=== PATIENT | female | born 1950 | race African-American/Black ===

== ENCOUNTER 2017-09-20 15:22 | Outpatient (CLI) | payer BC | END 2017-09-20 15:23 | disposition home or self-care (01) | LOC: BICMAMMO 15:22 | PROVIDERS: ATTEND Internal Medicine | DX: Z12.31 Encounter for screening mammogram for malignant neoplasm of breast (principal) | CPT/HCPCS: 77063; 77067 ==

== ENCOUNTER 2019-07-04 14:17 | Outpatient (CLI) | payer MEDICARE, BC ==
--- NOTE | 2019-07-04 16:03 | BD ---
Exam: DEXA Bone Density 07/04/19 HISTORY: Menopausal. FINDINGS: BMD (g/cm2) T-SCORE Left hip: Femoral neck: 0.840 -0.1 Total: 0.907 -0.3 Within normal limits with no increased risk for fracture. Right hip: Femoral neck: 0.826 -0.2 Total: 0.933 -0.1 Within normal limits with no increased risk for fracture. FRAX score not reported because all T-Scores at or above -1.0. POS: [facility]
--- NOTE | 2019-07-07 08:15 | MMO ---
Bilateral MAMMO Bilat Screen [facility]. CLINICAL HISTORY: Patient is 68 years old and is seen for screening. The patient has no family history of breast cancer. The patient has no personal history of cancer. The patient has a history of left Excisional Biopsy at age 28 - benign. VIEWS: The views performed were: bilateral craniocaudal with tomosynthesis and bilateral mediolateral oblique with tomosynthesis. FILMS COMPARED: The present examination has been compared to prior imaging studies performed at [facility] on 04/23/2015, 04/28/2016 and 09/20/2017, and at [facility] on 05/02/2013. This study has been interpreted with the assistance of computer-aided detection. MAMMOGRAM FINDINGS: There are scattered fibroglandular densities. Benign calcifications are noted bilaterally. There are no suspicious masses, suspicious calcifications, or new areas of architectural distortion. IMPRESSION: THERE IS NO MAMMOGRAPHIC EVIDENCE OF MALIGNANCY. A ROUTINE FOLLOW-UP MAMMOGRAM IN 1 YEAR IS RECOMMENDED. THE RESULTS OF THIS EXAM WERE SENT TO THE PATIENT. ACR BI-RADS Category 2 - Benign finding MAMMOGRAPHY NOTE: 1. A negative mammogram report should not delay a biopsy if a dominant of clinically suspicious mass is present. 2. Approximately 10% to 15% of breast cancers are not detected by mammography. 3. Adenosis and dense breasts may obscure an underlying neoplasm. Reported by: ELISABETH LOCKETT MD Electonically Signed: [id number]
== END 2019-07-04 14:18 | disposition home or self-care (01) ==
LOC: BICMAMMO 14:17
PROVIDERS: ATTEND Internal Medicine
DX: Z12.31 Encounter for screening mammogram for malignant neoplasm of breast (principal); Z13.820 Encounter for screening for osteoporosis; N95.9 Unspecified menopausal and perimenopausal disorder; Z91.89 Other specified personal risk factors, not elsewhere classified
CPT/HCPCS: 77063; 77067; 77080

== ENCOUNTER 2019-09-16 13:35 | Outpatient (CLI) | payer MEDICARE, BC ==
--- NOTE | 2019-09-16 13:52 | ULT ---
Abdominal aortic sonogram with duplex evaluation HISTORY: Aneurysm screening. FINDINGS: Proximal abdominal aorta is 1.5 cm AP diameter, mid abdominal aorta 1.4 cm, distal abdomina l aorta 1.3 cm. Common iliac arteries have a normal appearance. No adjacent fluid. Good color and spectral Doppler flow. IMPRESSION : Normal exam. No evidence of abdominal aortic aneurysm.
== END 2019-09-16 13:36 | disposition home or self-care (01) ==
LOC: BICULT 13:35
PROVIDERS: ATTEND Internal Medicine
DX: Z13.6 Encounter for screening for cardiovascular disorders (principal)
CPT/HCPCS: 76706

== ENCOUNTER 2020-08-24 16:38 | Outpatient (CLI) | payer MEDICARE, BC ==
[2020-08-24 18:00] LABS: Anion Gap 14 mmol/L (10-20); BUN (Urea Nitrogen) 17 mg/dL (9.8-20.1); Calc. Creatinine Clearance 0 mL/min (70-130); Calcium 10.2 mg/dL (7.8-10.44); Carbon Dioxide 25 mmol/L (23-31); Chloride 105 mmol/L (98-107); Glucose 83 mg/dL (80-115); Sodium 140 mmol/L (136-145)
[2020-08-24 18:24] LABS: Bilirubin Neg (Negative); Blood, Urine Negative (Negative); Clarity Clear (Clear); Glucose, Urine (Dipstick) Normal (Negative); Ketone, Urine Negative (Negative); Leukocyte Negative (Negative); Nitrite Negative (Negative); Protein, Urine (Dipstick) Negative (Neg-Trace); Urobilinogen Normal mg/dL (Less than 2)
[2020-08-24 18:42] LABS: INR-International Normal Ratio 0.9; PTT 26.9 sec (22.0-33.0); Prothrombin Time 10.5 sec (9.5-12.1)
[2020-08-24 18:43] LABS: Bacteria/HPF 2+ HPF (None Seen); Mucous/LPF Rare LPF (<2+); RBC/HPF None Seen HPF (0-3); WBC/HPF 0-3 HPF (0-3)
[2020-08-24 18:57] LABS: Mean Corpuscular HGB CONC 31.4 g/dL (32.0-36.0); Mean Corpuscular Hemoglobin 28.2 pg (27.0-33.0); Mean Corpuscular Volume 89.7 fl (81.6-98.3); Mean Platelet Volume 9.7 fl (7.4-10.4); Platelet Count 387 10x3/uL (150-450); RBC Distribution Width 13.3 % (11.5-14.5); Red Blood Cell (RBC) Count 4.26 10x6/uL (3.90-5.03); White Blood Cell (WBC) Count 5.5 10x3/uL (3.5-10.5)
== END 2020-08-24 16:39 | disposition home or self-care (01) ==
LOC: LABBT 16:38
PROVIDERS: ATTEND Urology
DX: Z01.818 Encounter for other preprocedural examination (principal); N28.89 Other specified disorders of kidney and ureter; N13.30 Unspecified hydronephrosis
CPT/HCPCS: 80048; 81001; 85027; 85610; 85730; 87086; 93005; 93010

== ENCOUNTER 2020-08-26 12:07 | Day surgery (SDC) | payer MEDICARE, BC ==
[2020-08-25 15:49] VITALS: BMI 41.8
[2020-08-26] MEDS ORDERED: Levofloxacin 500 mg/D5W 100 ml Premix Bag ONE (14:56)
[2020-08-26] MEDS ORDERED: Scopolamine 1.5 mg/72 hour Patch ONE (15:41)
[2020-08-26] MEDS ORDERED: B & O ONE (15:59)
[2020-08-26] MEDS ORDERED: Iothalamate Meglumine 60% 50 ML VIAL FS ONE (15:59)
[2020-08-26] MEDS ORDERED: Fentanyl 100 MCG/2 ML VIAL ONE ×2 (16:10→17:27)
[2020-08-26] MEDS ORDERED: PROPOFOL 200 MG/20 ML VIAL ONE (16:23)
[2020-08-26] MEDS ORDERED: Lidocaine 1% PF 5 ML VIAL ONE (16:23)
[2020-08-26] MEDS ORDERED: Ondansetron PF 4 MG/2 ML Vial ONE (16:23)
[2020-08-26] MEDS ORDERED: Dexamethasone 20 MG/5 ML VIAL ONE (16:23)
[2020-08-26] MEDS ORDERED: HYDROcodone/Acetaminophen 5/325 mg Tablet ONE (19:30)
== END 2020-08-26 19:50 | disposition home or self-care (01) ==
LOC: SDC 12:07
PROVIDERS: ATTEND Urology
PROC: 0T778DZ Dilation of Left Ureter with Intraluminal Device, Via Natural or Artificial Opening Endoscopic (ICD-10-PCS; principal; 2020-08-26)
DX: N13.1 Hydronephrosis with ureteral stricture, not elsewhere classified (principal); N81.10 Cystocele, unspecified; I10 Essential (primary) hypertension; E78.5 Hyperlipidemia, unspecified; K21.9 Gastro-esophageal reflux disease without esophagitis; E03.9 Hypothyroidism, unspecified; J45.909 Unspecified asthma, uncomplicated; E78.00 Pure hypercholesterolemia, unspecified; M19.90 Unspecified osteoarthritis, unspecified site; E11.9 Type 2 diabetes mellitus without complications; E66.01 Morbid (severe) obesity due to excess calories; Z79.899 Other long term (current) drug therapy
CPT/HCPCS: 52332; 74420; Q9961; C2617; J1100; J1956; J2405; J2704; J3010

== ENCOUNTER 2020-11-08 14:51 | Outpatient (CLI) | payer MEDICARE, BC ==
[~2020-11-08 14:51] MED LIST: Iopamidol 370 76% 100 ML VIAL ONE
== END 2020-11-08 14:52 | disposition home or self-care (01) ==
LOC: BICCT 14:51
PROVIDERS: ATTEND Urology
DX: N13.5 Crossing vessel and stricture of ureter without hydronephrosis (principal); N28.1 Cyst of kidney, acquired; K44.9 Diaphragmatic hernia without obstruction or gangrene; K57.30 Diverticulosis of large intestine without perforation or abscess without bleeding; N28.89 Other specified disorders of kidney and ureter
CPT/HCPCS: 74178; 82565; Q9967

== ENCOUNTER 2020-12-15 12:03 | Outpatient (CLI) | payer MEDICARE, BC ==
[~2020-12-15 12:03] MED LIST changes: +Furosemide 40 MG/4 ML VIAL ONE; -Iopamidol 370 76% 100 ML VIAL ONE
== END 2020-12-15 12:04 | disposition home or self-care (01) ==
LOC: NM 12:03
PROVIDERS: ATTEND Urology
DX: N13.5 Crossing vessel and stricture of ureter without hydronephrosis (principal); N13.9 Obstructive and reflux uropathy, unspecified
CPT/HCPCS: 78708; A4641; A9562; J1940

== ENCOUNTER 2021-11-07 13:51 | Outpatient (CLI) | payer MEDICARE, BC | END 2021-11-07 13:52 | disposition home or self-care (01) | LOC: BICMAMMO 13:51 | PROVIDERS: ATTEND Internal Medicine | DX: Z12.31 Encounter for screening mammogram for malignant neoplasm of breast (principal) | CPT/HCPCS: 77063; 77067 ==

== ENCOUNTER 2023-09-23 23:13 | Inpatient (IN) | payer MEDICARE ==
[2023-09-24 01:03] VITALS: BMI 40.8
[2023-09-24] MEDS ORDERED: Ondansetron ODT 4 MG TAB PO PRN (01:21)
[2023-09-24] MEDS ORDERED: Acetaminophen 650 MG Suppository PR PRN (01:21)
[2023-09-24] MEDS: Ondansetron PF 4 MG/2 ML Vial IVP PRN (01:56)
[2023-09-24] MEDS: Famotidine/PF 20 mg/2ml Vial SLOW IVP SCH ×2 (01:56→08:24)
[2023-09-24] MEDS: Morphine 2 MG/ML VIAL SLOW IVP SCH ×2 (03:53→16:50)
[2023-09-24] MEDS: Promethazine HCl 12.5 MG in Sodium Chloride 0.9% 50 ML IVPB SCH (03:53)
[2023-09-24] MEDS: Levothyroxine Sodium 50 MCG TAB PO SCH (05:16)
[2023-09-24 06:47] LABS: #Basophils Less than 0.03 10x3/uL (0.0-0.2); #Eosinphils Less than 0.03 10x3/uL (0.0-0.7); %Basophils 0.2 % (0.0-1.0); %Eosinophils 0.1 % (0.0-10.0); %Lymphocytes 10.4 % (21.0-51.0); %Monocytes 2.3 % (0.0-10.0); %Neutrophils 86.8 % (42.0-75.0); Hematocrit 36.3 % (36.0-47.0); Hemoglobin 11.7 g/dL (12.0-16.0); Mean Corpuscular HGB CONC 32.2 g/dL (32.0-36.0); Mean Corpuscular Hemoglobin 29.1 pg (27.0-31.0); Mean Corpuscular Volume 90.3 fL (78.0-98.0); Mean Platelet Volume 9.2 fL (7.4-10.4); Platelet Count 312 10x3/uL (130-400); RBC Distribution Width 14.4 % (11.5-14.5); Red Blood Cell (RBC) Count 4.02 mill/uL (4.20-5.40)
[2023-09-24 07:08] LABS: Anion Gap 14 mmol/L (10-20); BUN (Urea Nitrogen) 11 mg/dL (9.8-20.1); Calc. Creatinine Clearance 113 mL/min (70-130); Calcium 9.1 mg/dL (7.8-10.44); Carbon Dioxide 22 mmol/L (23-31); Chloride 107 mmol/L (98-107); Estimated GFR 94; Glucose 110 mg/dL (83-110); Potassium 3.8 mmol/L (3.5-5.1); Sodium 139 mmol/L (136-145)
[2023-09-24] MEDS: Aspirin 81 mg Enteric Coated Tablet PO SCH (08:23)
[2023-09-24] MEDS: Famotidine 20 MG TAB PO SCH (08:24)
[2023-09-24] MEDS: Lisinopril 10 MG TAB PO SCH (08:24)
[2023-09-24] MEDS: Pantoprazole DR 40 MG TAB PO SCH (10:34)
[2023-09-24] MEDS ORDERED: MD-Gastroview 120 ML BOT ONE (12:25)
[2023-09-24] MEDS: Lactated Ringer's 1,000 ML IV SCH (14:10)
[2023-09-24] MEDS: Morphine 2 MG/ML VIAL SLOW IVP PRN (14:11)
[2023-09-24] MEDS: Loratadine 10 MG TAB PO SCH (21:00)
[2023-09-24] MEDS: Atorvastatin Calcium 10 MG TAB PO SCH (21:00)
[2023-09-25] MEDS: hydrALAZINE 20 MG/ML VIAL SLOW IVP SCH (02:38)
[2023-09-25] MEDS: Morphine 2 MG/ML VIAL SLOW IVP SCH (02:39)
[2023-09-25 06:06] LABS: #Basophils Less than 0.03 10x3/uL (0.0-0.2); %Basophils 0.3 % (0.0-1.0); %Eosinophils 0.4 % (0.0-10.0); %Lymphocytes 26.6 % (21.0-51.0); %Monocytes 7.5 % (0.0-10.0); %Neutrophils 64.9 % (42.0-75.0); Hematocrit 36.6 % (36.0-47.0); Hemoglobin 11.7 g/dL (12.0-16.0); Mean Corpuscular Hemoglobin 29.5 pg (27.0-31.0); Mean Corpuscular Volume 92.4 fL (78.0-98.0); Mean Platelet Volume 9.3 fL (7.4-10.4); Platelet Count 345 10x3/uL (130-400); RBC Distribution Width 14.6 % (11.5-14.5); Red Blood Cell (RBC) Count 3.96 mill/uL (4.20-5.40)
[2023-09-25 06:29] LABS: Anion Gap 15 mmol/L (10-20); BUN (Urea Nitrogen) 13 mg/dL (9.8-20.1); Calc. Creatinine Clearance 113 mL/min (70-130); Calcium 9.6 mg/dL (7.8-10.44); Carbon Dioxide 26 mmol/L (23-31); Chloride 103 mmol/L (98-107); Estimated GFR 94; Glucose 94 mg/dL (83-110); Potassium 3.3 mmol/L (3.5-5.1); Sodium 141 mmol/L (136-145)
[2023-09-25] MEDS: Potassium Chloride 20 MEQ in Premix 1 BAG IVPB SCH (08:10)
[2023-09-25] MEDS: Pantoprazole DR 40 MG TAB PO SCH (08:10)
[2023-09-25] MEDS ORDERED: Famotidine 20 MG TAB PO SCH (09:00)
[2023-09-26] MEDS: Acetaminophen 325 MG TAB PO PRN (05:29)
[2023-09-26 07:42] VITALS: BP 142/82; TEMP 98.4
[2023-09-26 08:23] LABS: Anion Gap 15 mmol/L (10-20); BUN (Urea Nitrogen) 14 mg/dL (9.8-20.1); Calc. Creatinine Clearance 108 mL/min (70-130); Calcium 9.6 mg/dL (7.8-10.44); Carbon Dioxide 23 mmol/L (23-31); Chloride 106 mmol/L (98-107); Estimated GFR 93; Glucose 62 mg/dL (83-110); Potassium 3.9 mmol/L (3.5-5.1); Sodium 140 mmol/L (136-145)
== END 2023-09-26 16:36 | disposition home or self-care (01) | DRG 389 ==
LOC: T4-A 09-24 00:06 → OBSVTOIN 09-24 17:05
PROVIDERS: ADMIT Student in an Organized Health Care Education/Training Program; ATTEND Internal Medicine
DX: K56.609 Unspecified intestinal obstruction, unspecified as to partial versus complete obstruction (principal); N13.1 Hydronephrosis with ureteral stricture, not elsewhere classified; K21.9 Gastro-esophageal reflux disease without esophagitis; E78.5 Hyperlipidemia, unspecified; E03.9 Hypothyroidism, unspecified; I10 Essential (primary) hypertension; Z98.51 Tubal ligation status; Z90.710 Acquired absence of both cervix and uterus; Z79.890 Hormone replacement therapy; Z79.82 Long term (current) use of aspirin; Z79.899 Other long term (current) drug therapy; Z88.5 Allergy status to narcotic agent
CPT/HCPCS: 36415; 74019; 74250; 80048; 85025; J0360; J2272; J2405; J2550; J3480; J7120; Q9963; S0028

== ENCOUNTER 2024-10-10 08:02 | Outpatient (CLI) | payer MEDICARE | END 2024-10-10 08:03 | disposition home or self-care (01) | LOC: NM 08:02 | PROVIDERS: ATTEND Internal Medicine | DX: R06.00 Dyspnea, unspecified (principal) | CPT/HCPCS: 78452; 93017; A9502; J2785 ×2 ==

== ENCOUNTER 2024-11-27 09:14 | Outpatient (CLI) | payer MEDICARE ==
[2024-11-27] MEDS ORDERED: Furosemide 40 MG (4 mL) VIAL ONE (10:29)
== END 2024-11-27 09:15 | disposition home or self-care (01) ==
LOC: NM 09:14
PROVIDERS: ATTEND Urology
DX: N13.5 Crossing vessel and stricture of ureter without hydronephrosis (principal)
CPT/HCPCS: 51702; 78708; A4641; A9562; J1940; A4314